=== PATIENT | male | born 1995 | race Caucasian/White ===

== ENCOUNTER 2025-04-26 13:45 | Emergency (ER) | payer BC, SELFPAY ==
[2025-04-26 13:46] VITALS: BMI 28.5
[2025-04-26 13:56] VITALS: BP 141/92; PULSE 118; RESP 20; TEMP 37.2; O2SAT 95
--- NOTE | 2025-04-26 14:19 | PD.EDWOUND ---
ED Wound/Laceration-RME/HPI General Chief Complaint: Wound/Laceration Stated Complaint: LACERATION TO LEFT HEAD AND BACK, HEAD INJURY Time Seen by Provider: 04/26/25 13:50 Arrival date/time: 04/26/25 13:45 Limitations: no limitations RME / HPI RME / HPI narrative: Patient is a healthy 29-year-old male with no chronic medical history. He does not recall his last tetanus shot. He states he was working on his van at home this morning. He was removing a lift gate when it fell down and struck his scalp and scratched his back. He had no loss of conscious or fall. Denies any vision changes, nausea, vomiting. Has no scalp deformity. Has no behavioral changes. Has no neck pain or back pain. Has no chest pain. Has no injuries to the extremities. He has no other acute concerns. Related Data Allergies Allergy/AdvReac Type Severity Reaction Status Date / Time Penicillins Allergy Severe STOPS Verified 04/26/25 13:46 BREATHING Review of Systems Review of Systems Systems Reviewed: All systems reviewed, normal except as documented ED Exam General Limitations: Present no limitations General appearance: Present alert and in no apparent distress Head Head exam: Present other (No scalp deformity is present. There is no crepitus. There is a 9 cm, superficial, laceration at the superior portion of the left scalp) Eye Eye exam: Present normal appearance, PERRL and EOMI ENT ENT exam: Present normal exam, normal oropharynx and mucous membranes moist Neck Neck exam: Present normal inspection, full ROM and trachea midline Chest Chest inspection: Present normal inspection and symmetric chest wall rise Respiratory Respiratory exam: Present normal lung sounds bilaterally Cardiovascular Cardiovascular exam: Present regular rate, normal rhythm and normal heart sounds Abdominal Exam Abdominal exam: Present soft and normal bowel sounds Extremities Exam Extremities exam: Present normal inspection and full ROM Back Exam Back exam: Present normal inspection and full ROM Neurological Exam Neurological exam: Present alert, oriented X3 and CN II-XII intact Psychiatric Psychiatric exam: Present normal affect and normal mood Skin Skin exam: Present warm, dry and other (No scalp deformity is present. There is no crepitus. There is a 9 cm, superficial, laceration at the superior portion of the left scalp, there is an additional, 11 cm, linear, superficial, abrasion at the thoracic portion of the back.) Course Quality Measures none Orders Category Date Time Status TDap [Obtain Tdap Consent] X1 Care 04/26/25 13:50 Active Lidocaine 1% 20 ml [Xylocaine 1% 20 ML] Med 04/26/25 13:50 Discontinued 20 ml INFL X1 ONE Vital Signs Vital signs: Vital Signs Temperature 98.9 F 04/26/25 13:56 Pulse Rate 118 H 04/26/25 13:56 Respiratory Rate 20 04/26/25 13:56 Blood Pressure 141/92 H 04/26/25 13:56 Pulse Oximetry (%) 95 04/26/25 13:56 Oxygen Delivery Method Room Air 04/26/25 13:56 PROCEDURES: Procedure Comment Verbal consent was obtained. We discussed wound closure of the scalp. Anesthesia was offered. We also informed patient that the wound can be closed with karol without anesthesia. Patient opted to have a closed without the anesthesia. Being worked #8, karol were placed to approximate the scalp wound. Wound care discussed. Procedure was tolerated well without any immediate complication. Wound / Laceration MDM Narrative MDM Narrative:: Patient is a healthy 29-year-old male with no chronic medical history. He does not recall his last tetanus shot. He states he was working on his van at home this morning. He was removing a lift gate when it fell down and struck his scalp and scratched his back. He had no loss of conscious or fall. Denies any vision changes, nausea, vomiting. Has no scalp deformity. Has no behavioral changes. Has no neck pain or back pain. Has no chest pain. Has no injuries to the extremities. He has no other acute concerns. No scalp deformity is present. There is no crepitus. There is a 9 cm, superficial, laceration at the superior portion of the left scalp. This was repaired via primary tension. Patient was vies to follow-up with his primary care provider or urgent care in 5 days for wound reassessment and possible staple removal. Wound care was discussed. He agrees to return here as needed for any worsening changes including signs or symptoms of infection. Patient data External records reviewed:: None Clinical information provided by:: patient and family Social determinants that could affect healthcare access:: none Patient has the following chronic illnesses:: n/a How is presenting disease/condition affected by chronic disease/condition?: no chronic disease Evaluation data The following diagnostics were reviewed and interpreted by me:: other (specify) (n/a) Lab and/or radiology exams considered but not ordered:: n/a Interpretation Summary: n/a Medications / Prescriptions Medications or Prescriptions considered but not ordered:: n/a Medication administrations:: Medication Administration History Discontinued Medications Lidocaine HCl (Lidocaine Hcl 1% 20 Ml Vial) 20 ml INFL X1 ONE Stop: 04/26/25 13:51 Last Admin: 04/26/25 14:26 Dose: 20 ml See above Consultations Consultation(s) initiated? (list below): No Diagnosis Wound Differential Diagnosis: laceration Most likely diagnosis given after review of the tests above:: n/a Admission Indicated Admission indicated?: not indicated Admission Request Was there a request for admission?: No Disposition Plan Disposition Plan: Discharge Discharge Attestation Discharge Attestation: The patient and all family members were given an opportunity to ask questions and understood the discharge instructions. Discharge instructions specifically effects, indications for sooner follow up or return to the emergency department, and the expected course of current diagnosis. Patient condition: Stable Discharge Plan Plan Patient Disposition: HOME (Self Care) Patient condition on transfer: Stable Problem List Clinical Impression: Laceration of scalp Patient/Caregiver Discharge Instructions Education Materials: ED Head Injury (Adult) Additional Instructions: - 8 karol were placed on your scalp. Your primary doctor or urgent care can remove these in 5 days. -Keep your wound clean with soap and water. Do not place any topical alcohol, iodine, or hydrogen peroxide on the wound. Once your karol are removed, you can place lotion or aloe vera to help with healing and scaring. -Return here to the ER at any time for any emergent changes including signs of or concerns for infection. Print Language: Danish Stand Alone Forms: Jerri Award Info., Work/School Release, Patient Portal Info Letter
[2025-04-26] MEDS: LIDOCAINE HCL 1% 20 ML VIAL INFL (14:26)
== END 2025-04-26 14:40 | disposition home or self-care (01) ==
LOC: SERX 14:25
PROVIDERS: Emergency Provider Emergency Medicine
DX: S01.01XA Laceration without foreign body of scalp, initial encounter (principal); W20.8XXA Other cause of strike by thrown, projected or falling object, initial encounter
CPT/HCPCS: 12004; 99282; J3490